=== PATIENT | female | born 1990 | race Caucasian/White ===

== ENCOUNTER 2017-07-06 06:07 | Day surgery (SDC) | payer BC ==
[2017-07-04 14:59] VITALS: BMI 31.7
--- NOTE | 2017-07-04 18:06 | P.HPOB ---
History of Present Illness H&P Date: 07/04/17 Chief Complaint: missed 27 year old presents for suction D&C due to missed at 9 weeks. Review of Systems All systems: negative Constitutional: Denies chills, Denies fever Eyes: denies blurred vision, denies pain Ears, nose, mouth and throat: Denies headache, Denies sore throat Cardiovascular: Denies chest pain, Denies shortness of breath Respiratory: Denies cough Gastrointestinal: Denies abdominal pain, Denies diarrhea, Denies nausea, Denies vomiting Genitourinary: Denies dysuria, Denies hematuria Musculoskeletal: Denies myalgias Integumentary: Denies pruritus, Denies rash Neurological: Denies numbness, Denies weakness Psychiatric: Denies anxiety, Denies depression Endocrine: Denies fatigue, Denies weight change Past Medical History Past Medical History: No Reported History Additional Past Medical History / Comment(s): Hypoglycemia History of Any Multi-Drug Resistant Organisms: None Reported Past Surgical History: No Surgical Hx Reported Additional Past Surgical History / Comment(s): No hx. of sedation Additional Past Anesthesia/Blood Transfusion Reaction / Comment(s): No hx. of having sedation. Past Psychological History: No Psychological Hx Reported Smoking Status: Never smoker Past Alcohol Use History: None Reported Past Drug Use History: None Reported - Past Family History Mother Family Medical History: No Reported History Medications and Allergies Home Medications Medication Instructions Recorded Confirmed Type No Known Home Medications [No 05/16/15 07/04/17 History Known Home Medications] Allergies Allergy/AdvReac Type Severity Reaction Status Date / Time No Known Allergies Allergy Verified 07/04/17 14:43 Exam Osteopathic Statement: *. No significant issues noted on an osteopathic structural exam other than those noted in the History and Physical/Consult. - Vital Signs Vital signs: Intake and Output 07/04/17 07/04/17 07/04/17 06:59 14:59 22:59 Other: Weight 83.915 kg Patient Weight 07/05/17 06:59 Weight 83.915 kg Heart: RRR Lungs: CTAB Abdomen:soft, nontender Extremeties: neg sebastian's Assessment and Plan (1) Missed Status: Acute Code(s): O02.1 - MISSED SNOMED Code(s): 88576221 Plan: 1. suction D&C
[~2017-07-06 06:07] MED LIST: DEXAMETHASONE SOD PHOSPHATE 10 MG/ML 1 ML VIAL IV ONE; HYDROmorphone 0.5 MG/0.5 ML SYRINGE IVP PRN; LACTATED RINGERS 1,000 ML IV SCH; ONDANSETRON 4 MG/2 ML VIAL IVP ONE; ONDANSETRON 4 MG/2 ML VIAL IVP PRN; Pre Op ABX Message 1 EACH MISC MISCELLANE ONE; SCOPOLAMINE 1.5MG/72HR PATCH TRANSDERM ONE
[2017-07-06 06:23] VITALS: RESP 16
[2017-07-06] MEDS ORDERED: LIDOCAINE 1% 20 ML VIAL (10MG/ML) FOR IV START INTRADERMA ONE (06:37)
[2017-07-06] MEDS ORDERED: KETOROLAC 30 MG/ML 1 ML VIAL ONE (07:02)
[2017-07-06] MEDS ORDERED: LIDOCAINE 1% INJ 10MG/ML (20 ML MDV) ONE (07:02)
[2017-07-06] MEDS ORDERED: PROPOFOL 10 MG/ML 20 ML VIAL IV ONE (07:02)
[2017-07-06] MEDS ORDERED: fentaNYL (PF) 50 MCG/ML 2 ML AMP ONE (07:02)
[2017-07-06] MEDS ORDERED: MIDAZOLAM 2 MG/2 ML VIAL ONE (07:02)
[2017-07-06 07:48] VITALS: TEMP 98
[2017-07-06 09:27] VITALS: BP 141/73; PULSE 73
--- NOTE | 2017-07-06 14:29 | P.OP ---
Date of Procedure: 07/06/17 Preoperative Diagnosis: 1. Missed Postoperative Diagnosis: 1. Missed Procedure(s) Performed: Suction D&C Anesthesia: MAC Surgeon: mAanda Brush Estimated Blood Loss (ml): 400 IV fluids (ml): 800 Urine output (ml): 10 Pathology: other (products of conception) Condition: stable Disposition: PACU Description of Procedure: Patient was taken to the operating room where general anesthesia was obtained without difficulty. She was prepped and draped in normal sterile fashion dorsal lithotomy position, legs placed in candycane stirrups. Bladder was drained of all urine. Weighted speculum placed in the vagina and the anterior lip the cervix was grasped with single-tooth tenaculum. The cervix was dilated to #10 Hegar dilator. #10 curved suction curet was introduced into the uterus and hydrodissection. The suction curet was passed several times to remove tissue and blood. Sharp curet was gently used to ensure all tissue had been removed. Suction curet was used to ensure all blood had been removed. Hemostasis was assured. All she was removed from the vagina. Patient tolerated procedure well. Sponge and instrument counts are correct 2. She was taken to recovery room in stable condition.
[2017-07-11 10:27] LABS: Glucose,Whole Blood 95 mg/dL (75-99)
== END 2017-07-06 09:28 | disposition home or self-care (01) ==
LOC: OR 06:07
PROVIDERS: ATTEND Obstetrics & Gynecology
DX: O02.1 Missed abortion (principal); Z3A.09 9 weeks gestation of pregnancy
CPT/HCPCS: 59820; 88305; J2250; J1100; J2405; J2001; J3010; J1885; J2704; 86850; 86900; 86901

== ENCOUNTER → 2017-07-16 | Outpatient (CLI) | payer BC ==
[2017-07-16 16:10] LABS: Basophils % (A) 0 %; Eosinophils # (A) 0.1 k/uL (0-0.7); Eosinophils % (A) 1 %; HCT 39.2 % (34.0-46.0); Lymphocytes # (A) 1.3 k/uL (1.0-4.8); Lymphocytes % (A) 20 %; MCH 31.3 pg (25.0-35.0); MCHC 33.2 g/dL (31.0-37.0); MCV 94.2 fL (80.0-100.0); Mean Platelet Volume 6.4; Monocytes # (A) 0.2 k/uL (0-1.0); Monocytes % (A) 3 %; Neutrophils % (A) 73 %; Platelet Count 398 k/uL (150-450); RBC 4.16 m/uL (3.80-5.40); RDW 12.4 % (11.5-15.5); WBC 6.8 k/uL (3.8-10.6)
== END | disposition home or self-care (01) ==
LOC: LABWHC1 15:32
PROVIDERS: ATTEND Obstetrics & Gynecology
DX: N99.821 Postprocedural hemorrhage of a genitourinary system organ or structure following other procedure (principal); N93.9 Abnormal uterine and vaginal bleeding, unspecified
CPT/HCPCS: 36415; 85025

== ENCOUNTER 2019-01-25 03:03 | Emergency (ER) | payer BC ==
[2019-01-25 03:16] VITALS: TEMP 97.9
--- NOTE | 2019-01-25 04:36 | XR ---
EXAM: XR Chest, 2 Views CLINICAL HISTORY: ITS.REASON XR Reason: Pain TECHNIQUE: Frontal and lateral views of the chest. COMPARISON: No relevant prior studies available. FINDINGS: Lungs: Unremarkable. No consolidation. Pleural space: Unremarkable. No pneumothorax. Heart: No suspicious enlargement. Mediastinum: Unremarkable. Bones/joints: No acute fracture. IMPRESSION: No acute findings.
--- NOTE | 2019-01-25 05:32 | ED ---
Chest Pain HPI - General Chief Complaint: Chest Pain Stated Complaint: Chest Pain Time Seen by Provider: 01/25/19 03:31 Source: patient Mode of arrival: wheelchair Limitations: no limitations - History of Present Illness MD Complaint: chest pain -: hour(s) Pain Location: substernal Pain Radiation: none Severity: moderate Quality: sharp Consistency: constant Improves With: nothing Worsens With: nothing Treatments Prior to Arrival: none - Related Data Previous Rx's Medication Instructions Recorded Ibuprofen [Motrin] 600 mg PO Q6HR PRN #30 tab 07/06/17 Allergies Allergy/AdvReac Type Severity Reaction Status Date / Time No Known Allergies Allergy Verified 07/06/17 07:08 Review of Systems ROS Statement: Those systems with pertinent positive or pertinent negative responses have been documented in the HPI. ROS Other: All systems not noted in ROS Statement are negative. Constitutional: Denies: fever, chills Respiratory: Denies: cough, dyspnea Cardiovascular: Reports: as per HPI, chest pain. Denies: palpitations, syncope Gastrointestinal: Denies: abdominal pain, nausea, vomiting Musculoskeletal: Denies: back pain Skin: Denies: rash Neurological: Denies: headache, weakness, numbness EKG Findings - EKG Results: EKG: interpreted by ERMD, sinus rhythm, normal axis, normal ST/T EKG shows: tachycardia (Rate 102 BPM) - Blocks, [place], Hypertrophy, ST Abn: AV and intraventricular conduction: right bundle branch block (fixed/intermittent, complete/incomplete) (Incomplete) Past Medical History Past Medical History: No Reported History Additional Past Medical History / Comment(s): Heart mumur History of Any Multi-Drug Resistant Organisms: None Reported Past Surgical History: No Surgical Hx Reported Past Psychological History: No Psychological Hx Reported Smoking Status: Never smoker Past Alcohol Use History: Occasional Past Drug Use History: None Reported General Exam Limitations: no limitations General appearance: alert, in no apparent distress Head exam: Present: atraumatic, normocephalic Eye exam: Present: normal appearance. Absent: scleral icterus, conjunctival injection ENT exam: Present: normal oropharynx Neck exam: Present: normal inspection, full ROM Respiratory exam: Present: normal lung sounds bilaterally, chest wall tenderness. Absent: respiratory distress, wheezes, rales, rhonchi, stridor, accessory muscle use Cardiovascular Exam: Present: normal rhythm, tachycardia (Rate 104 my exam), normal heart sounds. Absent: systolic murmur, diastolic murmur, rubs, gallop GI/Abdominal exam: Present: soft. Absent: distended, tenderness, guarding, rebound, rigid, mass Extremities exam: Present: normal inspection, normal capillary refill. Absent: pedal edema, calf tenderness Back exam: Present: normal inspection. Absent: CVA tenderness (R), CVA tenderness (L) Neurological exam: Present: alert Skin exam: Present: warm, dry, intact, normal color. Absent: rash Course Vital Signs 01/25/19 01/25/19 03:11 05:49 Temperature 97.9 F Pulse Rate 115 H 82 Respiratory 18 16 Rate Blood Pressure 129/89 122/77 O2 Sat by Pulse 97 100 Oximetry [facility] Patient is 28-year-old woman with no previous cardiac history who presents with substernal chest pain. The pain is reproduced on the exam with palpation. The patient's workup is benign. Discussed appropriate further care and follow-up as well as return parameters. Disposition Clinical Impression: Chest pain Disposition: HOME SELF-CARE Condition: Good Instructions (If sedation given, give patient instructions): Chest Pain (ED) Is patient prescribed a controlled substance at d/c from ED?: No Referrals: Cameron Acosta Jr, [Primary Care Provider] - 1-2 days
[2019-01-25 05:50] VITALS: BP 122/77; PULSE 82; RESP 16
== END 2019-01-25 05:50 | disposition home or self-care (01) ==
LOC: EC 03:03
DX: R07.89 Other chest pain (principal); R00.0 Tachycardia, unspecified; Z86.79 Personal history of other diseases of the circulatory system
CPT/HCPCS: 71046; 93005; 99285

== ENCOUNTER 2019-03-21 15:46 | Emergency (ER) | payer BC ==
[2019-03-21 15:52] VITALS: BP 155/93; PULSE 88; RESP 18; TEMP 98.8
--- NOTE | 2019-03-21 16:32 | ED ---
Female Urogenital HPI - General Chief complaint: Vaginal Bleeding Stated complaint: Fall sent by OB needs U/S Time Seen by Provider: 03/21/19 16:07 Source: patient Mode of arrival: ambulatory Limitations: no limitations - History of Present Illness Initial comments: Patient is a 29-year-old female presenting to the emergency Department with complaints of lower abdominal cramping and spotting times one week. Patient states she fell in her shower approximately one week ago. She states that later on that evening she started having vaginal bleeding. She thought initially it was her regular period starting however the bleeding only lasted approximately 2 days and then it stopped. She had another day of vaginal bleeding approximately 2 days after that. Patient decided to take a test which was positive. Patient had been taking control for the last year. Patient did call her [facility] who suggested she come to the ER for an ultrasound secondary to the cramping and bleeding. Patient denies any other injuries from falling out the shower. Patient denies any abdominal surgeries. Patient denies fever, chills, nausea, vomiting. Patient has no other complaints at this time. Upon arrival to ER vital signs are stable. Last Menstrual Period: 01/16/19 - Related Data Previous Rx's Medication Instructions Recorded Ibuprofen [Motrin] 600 mg PO Q6HR PRN #30 tab 07/06/17 Allergies Allergy/AdvReac Type Severity Reaction Status Date / Time No Known Allergies Allergy Verified 03/21/19 15:52 Review of Systems ROS Statement: Those systems with pertinent positive or pertinent negative responses have been documented in the HPI. ROS Other: All systems not noted in ROS Statement are negative. Past Medical History Past Medical History: No Reported History Additional Past Medical History / Comment(s): Heart mumur History of Any Multi-Drug Resistant Organisms: None Reported Past Surgical History: No Surgical Hx Reported Past Psychological History: No Psychological Hx Reported Smoking Status: Never smoker Past Alcohol Use History: Occasional Past Drug Use History: None Reported General Exam - General Exam Comments Initial Comments: GENERAL: Well-appearing, well-nourished and in no acute distress. HEAD: Atraumatic, normocephalic. EYES: Pupils equal round and reactive to light, extraocular movements intact, sclera anicteric, conjunctiva are normal. ENT: TMs normal, nares patent, oropharynx clear without exudates. Moist mucous membranes. NECK: Normal range of motion, supple without lymphadenopathy or JVD. LUNGS: Breath sounds clear to auscultation bilaterally and equal. No wheezes rales or rhonchi. HEART: Regular rate and rhythm without murmurs, rubs or gallops. ABDOMEN: Soft, nontender, normoactive bowel sounds. No guarding, no rebound. No masses appreciated. : Deferred, declined EXTREMITIES: Normal range of motion, no pitting or edema. No clubbing or cyanosis. NEUROLOGICAL: Cranial nerves II through XII grossly intact. Normal speech, normal gait. PSYCH: Normal mood, normal affect. SKIN: Warm, Dry, normal turgor, no rashes or lesions noted. Limitations: no limitations Course Vital Signs 03/21/19 15:48 Temperature 98.8 F Pulse Rate 88 Respiratory 18 Rate Blood Pressure 155/93 O2 Sat by Pulse 100 Oximetry Medical Decision Making - Medical Decision Making Patient is a 29-year-old female presenting with lower abdomen cramping and vaginal spotting x 1 week. Patient did take a test a few days ago and it was positive. Patient has been on control pills so this was unexpected. Patient took a fall approximately one week ago out of her shower has been having cramping and bleeding since. Patient denies any other injuries from the fall. Patient's exam is unremarkable. CBC, CMP, UA are all within normal limits. HCG Jeremias is approximately 96,000. Ultrasound reveals a single IUP with gestation around 7 weeks. Small subchorionic hemorrhage. Heart rate 136. Blood type is A+. Findings were discussed with the patient and she will follow-up with [facility]. Patient stable for discharge at this time. Return parameters were discussed with the patient and she verbalized understanding. Case discussed with Dr. Jacobs. - Lab Data Result diagrams: 03/21/19 17:00 03/21/19 17:00 Lab Results 03/21/19 03/21/19 03/21/19 Range/Units 17:00 17:00 17:00 WBC 7.0 (3.8-10.6) k/uL RBC 4.35 (3.80-5.40) m/uL Hgb 13.8 (11.4-16.0) gm/dL Hct 40.6 (34.0-46.0) % MCV 93.3 (80.0-100.0) fL MCH 31.8 (25.0-35.0) pg MCHC 34.1 (31.0-37.0) g/dL RDW 12.7 (11.5-15.5) % Plt Count 298 (150-450) k/uL Neutrophils % 73 % Lymphocytes % 18 % Monocytes % 5 % Eosinophils % 2 % Basophils % 0 % Neutrophils # 5.2 (1.3-7.7) k/uL Lymphocytes # 1.3 (1.0-4.8) k/uL Monocytes # 0.3 (0-1.0) k/uL Eosinophils # 0.1 (0-0.7) k/uL Basophils # 0.0 (0-0.2) k/uL Sodium 138 (137-145) mmol/L Potassium 4.0 (3.5-5.1) mmol/L Chloride 105 (98-107) mmol/L Carbon Dioxide 21 L (22-30) mmol/L Anion Gap 12 mmol/L BUN 8 (7-17) mg/dL Creatinine 0.44 L (0.52-1.04) mg/dL Est GFR (CKD-EPI)AfAm >90 (>60 ml/min/1.73 sqM) Est GFR (CKD-EPI)NonAf >90 (>60 ml/min/1.73 sqM) Glucose 121 H (74-99) mg/dL Calcium 10.1 (8.4-10.2) mg/dL Total Bilirubin 0.3 (0.2-1.3) mg/dL AST 25 (14-36) U/L ALT 14 (9-52) U/L Alkaline Phosphatase 55 (38-126) U/L Total Protein 8.0 (6.3-8.2) g/dL Albumin 4.5 (3.5-5.0) g/dL HCG, Quant 85669.4 mIU/mL Urine Color Urine Appearance (Clear) Urine pH (5.0-8.0) Ur Specific Winter (1.001-1.035) Urine Protein (Negative) Urine Glucose (UA) (Negative) Urine Ketones (Negative) Urine Blood (Negative) Urine Nitrite (Negative) Urine Bilirubin (Negative) Urine Urobilinogen (<2.0) mg/dL Ur Leukocyte Esterase (Negative) Blood Type A Positive Blood Type Recheck A Pos Bld Type Recheck Status No 03/21/19 Range/Units 17:00 WBC (3.8-10.6) k/uL RBC (3.80-5.40) m/uL Hgb (11.4-16.0) gm/dL Hct (34.0-46.0) % MCV (80.0-100.0) fL MCH (25.0-35.0) pg MCHC (31.0-37.0) g/dL RDW (11.5-15.5) % Plt Count (150-450) k/uL Neutrophils % % Lymphocytes % % Monocytes % % Eosinophils % % Basophils % % Neutrophils # (1.3-7.7) k/uL Lymphocytes # (1.0-4.8) k/uL Monocytes # (0-1.0) k/uL Eosinophils # (0-0.7) k/uL Basophils # (0-0.2) k/uL Sodium (137-145) mmol/L Potassium (3.5-5.1) mmol/L Chloride (98-107) mmol/L Carbon Dioxide (22-30) mmol/L Anion Gap mmol/L BUN (7-17) mg/dL Creatinine (0.52-1.04) mg/dL Est GFR (CKD-EPI)AfAm (>60 ml/min/1.73 sqM) Est GFR (CKD-EPI)NonAf (>60 ml/min/1.73 sqM) Glucose (74-99) mg/dL Calcium (8.4-10.2) mg/dL Total Bilirubin (0.2-1.3) mg/dL AST (14-36) U/L ALT (9-52) U/L Alkaline Phosphatase (38-126) U/L Total Protein (6.3-8.2) g/dL Albumin (3.5-5.0) g/dL HCG, Quant mIU/mL Urine Color Light Yellow Urine Appearance Clear (Clear) Urine pH 6.0 (5.0-8.0) Ur Specific Winter 1.004 (1.001-1.035) Urine Protein Negative (Negative) Urine Glucose (UA) Negative (Negative) Urine Ketones Negative (Negative) Urine Blood Negative (Negative) Urine Nitrite Negative (Negative) Urine Bilirubin Negative (Negative) Urine Urobilinogen <2.0 (<2.0) mg/dL Ur Leukocyte Esterase Negative (Negative) Blood Type Blood Type Recheck Bld Type Recheck Status Disposition Clinical Impression: Vaginal bleeding, and not yet delivered in first trimester Disposition: HOME SELF-CARE Condition: Stable Instructions (If sedation given, give patient instructions): Non-Threatening First Trimester Vaginal Bleed (ED) Additional Instructions: Please return to the Emergency Department if symptoms worsen or any other concerns. Follow-up with [facility] as discussed. Is patient prescribed a controlled substance at d/c from ED?: No Referrals: Cameron Acosta Jr, [Primary Care Provider] - 1-2 days
[2019-03-21 17:30] LABS: Appearance,Urine Clear (Clear); Basophils % (A) 0 %; Bilirubin,Urine Negative (Negative); Blood,Urine Negative (Negative); Color,Urine Light Yellow; Eosinophils # (A) 0.1 k/uL (0-0.7); Eosinophils % (A) 2 %; Glucose,Urine (UA) Negative (Negative); HCT 40.6 % (34.0-46.0); HGB 13.8 gm/dL (11.4-16.0); Ketones,Urine Negative (Negative); Leukocyte Esterase,Urine Negative (Negative); Lymphocytes # (A) 1.3 k/uL (1.0-4.8); Lymphocytes % (A) 18 %; MCH 31.8 pg (25.0-35.0); MCHC 34.1 g/dL (31.0-37.0); MCV 93.3 fL (80.0-100.0); Mean Platelet Volume 6.8; Monocytes # (A) 0.3 k/uL (0-1.0); Monocytes % (A) 5 %; Neutrophils # (A) 5.2 k/uL (1.3-7.7); Neutrophils % (A) 73 %; Nitrite,Urine Negative (Negative); Platelet Count 298 k/uL (150-450); Protein,Urine Negative (Negative); RBC 4.35 m/uL (3.80-5.40); RDW 12.7 % (11.5-15.5); Specific Gravity,Urine 1.004 (1.001-1.035); Urobilinogen,Urine <2.0 mg/dL (<2.0)
[2019-03-21 18:00] LABS: ALT 14 U/L (9-52); AST 25 U/L (14-36); African American GFR (CKD) >90 (>60 ml/min/1.73 sqM); Albumin 4.5 g/dL (3.5-5.0); Alkaline Phosphatase 55 U/L (38-126); Anion Gap 12 mmol/L; Blood Urea Nitrogen 8 mg/dL (7-17); Calcium 10.1 mg/dL (8.4-10.2); Carbon Dioxide 21 mmol/L (22-30); Chloride 105 mmol/L (98-107); Glucose 121 mg/dL (74-99); Non-African American GFR(CKD) >90 (>60 ml/min/1.73 sqM); Sodium 138 mmol/L (137-145); Total Bilirubin 0.3 mg/dL (0.2-1.3)
[2019-03-21 19:06] LABS: HCG,Quantitative Serum 95815.4 mIU/mL
--- NOTE | 2019-03-21 19:17 | US ---
EXAMINATION TYPE: Transabdominal DATE OF EXAM: 03/21/2019 6:19 PM COMPARISON: NONE CLINICAL HISTORY: cramping, spotting. LMP in January. Pt c/o cramping since last week. No vaginal blee ding per patient; EXAM PERFORMED: Transvaginal (TV) and Transabdominal (TA) EXAM MEASUREMENTS: GESTATIONAL AGE / DATING Physician Established: Not yet established Dates by LMP: LMP unknown Dates by First Scan: this is first scan Dates by Current Scan for: (7 weeks/0 days) EDC: 11/07/2019 MATERNAL ANATOMY Uterus: 8.2 x 6.6 x 5.2cm Right Ovary: 3.0 x 1.6 x 2.0 cm Left Ovary: 2.5 x 2.1 x 2.0 cm Post CDS / Adnexa: wnl Presence of free fluid: no Presence of corpus luteal cyst: in left ovary = 1.5 x 2.0 x 1.4cm Presence of subchorionic bleed: yes, noted inferiorly as hypoechoic area = 0.4 x 2.2 x 0.3 cm GESTATION / SURVEY CRL: 0.9 cm (7 weeks/0 days) Yolk Sac (normal less than 6mm): 2.8 mm Heart Rate: 136 bpm Rhythm: Normal IUP: Viable IUP Date of LMP: January,P0 Beta HcG (if available): Not available at this time Single, live IUP,7 weeks/0 days, EDC: 11/07/2019, HR 136bpm. IMPRESSION: 1. Single live intrauterine gestation with calculated ultrasound age of 7 weeks 0 days and estimated date of delivery 11/07/2019. 2. Small subchorionic hemorrhage.
== END 2019-03-21 19:40 | disposition home or self-care (01) ==
LOC: EC 15:46
DX: O20.9 Hemorrhage in early pregnancy, unspecified (principal); Z3A.01 Less than 8 weeks gestation of pregnancy; W18.2XXA Fall in (into) shower or empty bathtub, initial encounter; Y93.E1 Activity, personal bathing and showering
CPT/HCPCS: 36415; 76801; 76817; 80053; 81003; 84702; 85025; 86900; 86901; 99284

== ENCOUNTER 2019-06-22 08:08 | Emergency (ER) | payer BC ==
[2019-06-22 08:12] VITALS: BP 133/87; PULSE 96; RESP 16; TEMP 98.1
[2019-06-22] MEDS ORDERED: HYDROcodone/APAP 5-325MG 1 EACH TAB PO STA (08:26)
--- NOTE | 2019-06-22 08:28 | ED ---
Fall HPI - General Chief Complaint: Fall Stated Complaint: Right Shoulder Injury Time Seen by Provider: 06/22/19 08:13 Source: patient, RN notes reviewed, old records reviewed Mode of arrival: ambulatory - History of Present Illness Initial Comments: Patient is a 29-year-old female. She presents today for evaluation for concern for right shoulder and clavicle pain. Patient reports that she was walking up her steps into her home when she tripped. She reports she landed on her right shoulder. Patient states that she has pain with any range of motion. She states that she has no elbow wrist or hand pain. She denies any head or neck injury. Denies any loss of consciousness. Denies any previous injuries to the shoulder. - Related Data Previous Rx's Medication Instructions Recorded Ibuprofen [Motrin] 600 mg PO Q6HR PRN #30 tab 07/06/17 Ibuprofen 600 mg PO TID #30 tablet 06/22/19 Allergies Allergy/AdvReac Type Severity Reaction Status Date / Time No Known Allergies Allergy Verified 06/22/19 08:12 Review of Systems ROS Statement: Those systems with pertinent positive or pertinent negative responses have been documented in the HPI. ROS Other: All systems not noted in ROS Statement are negative. Past Medical History Past Medical History: No Reported History Additional Past Medical History / Comment(s): Heart mumur History of Any Multi-Drug Resistant Organisms: None Reported Past Surgical History: No Surgical Hx Reported Past Psychological History: No Psychological Hx Reported Smoking Status: Never smoker Past Alcohol Use History: Occasional Past Drug Use History: None Reported General Exam - General Exam Comments Initial Comments: 29-year-old female. Alert and oriented 3. No significant distress. Limitations: no limitations General appearance: alert, in no apparent distress Head exam: Present: atraumatic, normocephalic, normal inspection Eye exam: Present: normal appearance, PERRL, EOMI. Absent: scleral icterus, conjunctival injection, periorbital swelling ENT exam: Present: normal exam, mucous membranes moist Neck exam: Present: normal inspection. Absent: tenderness, meningismus, lymphadenopathy Respiratory exam: Present: normal lung sounds bilaterally. Absent: respiratory distress, wheezes, rales, rhonchi, stridor Cardiovascular Exam: Present: regular rate, normal rhythm, normal heart sounds. Absent: systolic murmur, diastolic murmur, rubs, gallop, clicks GI/Abdominal exam: Present: soft, normal bowel sounds. Absent: distended, tenderness, guarding, rebound, rigid Right Shoulder Exam: Present: tenderness, swelling (tenderness over deltoid, unable to complete ROM), tenderness over AC joint. Absent: normal inspection, full ROM, laceration, ecchymosis, deformity, crepitus, dislocation Upper Arm exam: Present: normal inspection, full ROM Elbow exam: Present: normal inspection, full ROM Forearm Wrist exam: Present: normal inspection, full ROM Vascular: Present: normal capillary refill Back exam: Present: normal inspection Neurological exam: Present: alert, oriented X3, CN II-XII intact Psychiatric exam: Present: normal affect, normal mood Course Vital Signs 06/22/19 08:10 Temperature 98.1 F Pulse Rate 96 Respiratory 16 Rate Blood Pressure 133/87 O2 Sat by Pulse 99 Oximetry Medical Decision Making - Medical Decision Making 29-year-old female presents today for evaluation for trip and fall. Patient she slipped going up her stairs and landed on her right shoulder. Just tenderness over the deltoid and AC joint. X-ray of the clavicle and shoulder were completed. No sign of fractures. Evidence of a grade [address] in a sling. Discussed following up with orthopedic. Patient understands treatment plan will comply. Return parameters were discussed. - Radiology Data Radiology results: report reviewed Grade 3 AC separation of the right AC joint. Shoulder x-ray shows no fractures. There is a grade 3 right aAC separation Disposition Clinical Impression: AC separation, type 3 Disposition: HOME SELF-CARE Instructions (If sedation given, give patient instructions): Acromioclavicular Separation (ED) Additional Instructions: Patient advised to rest and apply ice to the shoulder. Wear a sling. Recommended following up with loss mitigation specialist. Return to the emergency department if any alarming signs or symptoms occur. Prescriptions: Ibuprofen 600 mg PO TID #30 tablet Is patient prescribed a controlled substance at d/c from ED?: No Referrals: Cameron Acosta Jr, DO [Primary Care Provider] - 1-2 days Oliver Baumann MD [STAFF PHYSICIAN] - 1-2 days Time of Disposition: 09:00
--- NOTE | 2019-06-22 08:53 | XR ---
EXAMINATION TYPE: XR shoulder complete RT , 3 VIEWS DATE OF EXAM ORDERED: 06/22/2019 HISTORY: fall, pain rom. COMPARISON: None. FINDINGS: No fracture or dislocation is seen. The coracoclavicular distance is enlarged at 1.6 cm. IMPRESSION: GRADE 3 RIGHT AC SEPARATION.
--- NOTE | 2019-06-22 08:54 | XR ---
EXAMINATION TYPE: XR clavicle RT , 2 VIEWS DATE OF EXAM ORDERED: 06/22/2019 HISTORY: fall, pain rom. COMPARISON: None. FINDINGS: No fracture or dislocation is seen. Once again, a grade 3 right AC joint separation is see n with coracoclavicular distance measuring 18 mm. IMPRESSION: GRADE 3 AC SEPARATION OF THE RIGHT AC JOINT.
[2019-06-22] MEDS ORDERED: ACET/COD 300 MG/30 MG STARTER PACK 6 TAB BTL PO STA (09:09)
== END 2019-06-22 09:32 | disposition home or self-care (01) ==
LOC: EC 08:08
DX: S43.101A Unspecified dislocation of right acromioclavicular joint, initial encounter (principal); W10.9XXA Fall (on) (from) unspecified stairs and steps, initial encounter; Y93.01 Activity, walking, marching and hiking; Y92.009 Unspecified place in unspecified non-institutional (private) residence as the place of occurrence of the external cause
CPT/HCPCS: 99284

== ENCOUNTER 2022-12-28 08:13 | Inpatient (IN) | payer BC ==
[2022-12-28] MEDS ORDERED: miSOPROStoL 200 MCG TAB PO PRN (08:50)
[2022-12-28] MEDS ORDERED: LIDOCAINE 0.5% (PF) 5 MG/ML (50 ML SDV) SQ PRN (08:50)
[2022-12-28] MEDS ORDERED: CARBOPROST TROMETHAMINE 250 MCG/ML 1 ML AMP IM PRN (08:50)
[2022-12-28] MEDS ORDERED: OXYTOCIN 10 UNIT/ML 1 ML VIAL IM PRN (08:50)
[2022-12-28] MEDS ORDERED: METHYLERGONOVINE 0.2 MG/ML 1 ML AMP IM PRN (08:50)
[2022-12-28] MEDS ORDERED: TRANEXAMIC 1,000 MG/100ML-NACL 1,000 MG in EMPTY BAG 1 BAG IV PRN (08:50)
[2022-12-28] MEDS ORDERED: CITRIC ACID-SODIUM CITRATE 15 ML CUP PO ONE (08:52)
[2022-12-28] MEDS ORDERED: MIDAZOLAM 2 MG/2 ML VIAL ONE (08:54)
[2022-12-28] MEDS ORDERED: OXYTOCIN 10 UNIT/ML 1 ML VIAL ONE (08:54)
[2022-12-28] MEDS ORDERED: OXYTOCIN 30 UNITS/500 ML NS BAG IV ONE (08:54)
[2022-12-28] MEDS ORDERED: KETOROLAC 15 MG/ML 1 ML VIAL ONE (08:54)
[2022-12-28] MEDS ORDERED: SUCCINYLCHOLINE CHLORIDE 200 MG/10 ML VIAL IV ONE (08:54)
[2022-12-28] MEDS ORDERED: PROPOFOL 10 MG/ML 20 ML VIAL IV ONE (08:54)
[2022-12-28] MEDS ORDERED: fentaNYL (PF) 50 MCG/ML 2 ML AMP ONE (08:54)
[2022-12-28] MEDS ORDERED: ONDANSETRON 4 MG/2 ML VIAL ONE (08:54)
[2022-12-28] MEDS ORDERED: METOCLOPRAMIDE 5 MG/ML 2 ML VIAL IVP PRN (09:26)
[2022-12-28] MEDS ORDERED: diphenhydrAMINE 50 MG CAP PO PRN (09:26)
[2022-12-28] MEDS ORDERED: diphenhydrAMINE 50 MG/ML 1 ML VIAL IVP PRN ×2 (09:26)
[2022-12-28] MEDS ORDERED: ZOLPIDEM 5 MG TAB PO PRN (09:26)
[2022-12-28] MEDS ORDERED: NALOXONE 0.4 MG/ML 1 ML VIAL IV PRN (09:26)
[2022-12-28] MEDS ORDERED: ONDANSETRON 4 MG/2 ML VIAL IVP PRN (09:26)
[2022-12-28] MEDS ORDERED: diphenhydrAMINE 25 MG CAP PO PRN (09:26)
[2022-12-28] MEDS ORDERED: HYDROmorphone PCA 10 MG/50 ML BAG IV PRN (09:26)
[2022-12-28] MEDS ORDERED: SIMETHICONE 80 MG CHEWABLE PO PRN (09:26)
[2022-12-28] MEDS ORDERED: OXYTOCIN 30 UNITS/500 ML NS 30 UNIT in SALINE 1 500ML.BAG IV SCH (09:30)
[2022-12-28 10:11] LABS: Basophils # (A) 0.1 k/uL (0-0.2); Basophils % (A) 1 %; Eosinophils # (A) 0.2 k/uL (0-0.7); Eosinophils % (A) 1 %; HCT 38.3 % (34.0-46.0); HGB 12.9 gm/dL (11.4-16.0); Lymphocytes # (A) 1.4 k/uL (1.0-4.8); Lymphocytes % (A) 13 %; MCH 33.3 pg (25.0-35.0); MCHC 33.7 g/dL (31.0-37.0); MCV 98.8 fL (80.0-100.0); Mean Platelet Volume 8.5; Monocytes # (A) 0.4 k/uL (0-1.0); Monocytes % (A) 4 %; Neutrophils # (A) 8.4 k/uL (1.3-7.7); Neutrophils % (A) 79 %; Platelet Count 200 k/uL (150-450); RBC 3.87 m/uL (3.80-5.40); RDW 12.8 % (11.5-15.5); WBC 10.6 k/uL (3.8-10.6)
--- NOTE | 2022-12-28 11:11 | P.HPOB ---
History of Present Illness H&P Date: 12/28/22 Chief Complaint: PROM labor 32 year old presents at 27 weeks 2 days grossly ruptured, 8cm dilated, baby in priya breech position with presenting part at +1 station. RN says we initially did have heart tones but then the baby is so low in the pelvis, we did not get heart tones the time stamp assembler in triage. I presented to triage, checked the cervix and advised that if we want to do everything for this baby, we need to do an emergency . We weighed risks and benefits with mom and family between breech vaginal delivery and . This was already complicated by situs inversus, diaphragmatic hernia, cleft lip and minimal lung tissue. The patient was agreeable to our plan of expediting delivery via emergency . Review of Systems All systems: negative Constitutional: Denies chills, Denies fever Eyes: denies blurred vision, denies pain Ears, nose, mouth and throat: Denies headache, Denies sore throat Cardiovascular: Denies chest pain, Denies shortness of breath Respiratory: Denies cough Gastrointestinal: Denies abdominal pain, Denies diarrhea, Denies nausea, Denies vomiting Genitourinary: Denies dysuria, Denies hematuria Musculoskeletal: Denies myalgias Integumentary: Denies pruritus, Denies rash Neurological: Denies numbness, Denies weakness Psychiatric: Denies anxiety, Denies depression Endocrine: Denies fatigue, Denies weight change Past Medical History Past Medical History: No Reported History Additional Past Medical History / Comment(s): Heart mumur History of Any Multi-Drug Resistant Organisms: None Reported Past Surgical History: No Surgical Hx Reported Additional Past Surgical History / Comment(s): D&C Past Anesthesia/Blood Transfusion Reactions: No Reported Reaction Past Psychological History: No Psychological Hx Reported Smoking Status: Current some day smoker Past Alcohol Use History: Occasional Past Drug Use History: None Reported - Past Family History Mother Family Medical History: No Reported History Medications and Allergies Home Medications Medication Instructions Recorded Confirmed Type No Known Home Medications 12/28/22 12/28/22 History Allergies Allergy/AdvReac Type Severity Reaction Status Date / Time No Known Allergies Allergy Verified 12/28/22 09:24 Exam Osteopathic Statement: *. No significant issues noted on an osteopathic structural exam other than those noted in the History and Physical/Consult. Vital Signs Temp Pulse Resp BP Pulse Ox 12/28/22 10:54 75 16 135/83 100 12/28/22 10:36 98.1 F 73 16 138/82 100 12/28/22 10:21 86 16 138/82 100 12/28/22 10:06 78 16 140/79 100 12/28/22 09:50 98.0 F 101 H 16 149/88 100 12/28/22 09:28 97.7 F 94 16 139/82 99 12/28/22 08:50 97.7 F 94 16 139/82 99 Intake and Output 12/27/22 12/28/22 12/28/22 22:59 06:59 14:59 Output Total 707 Balance -707 Output: Output, Quantitative 707 Blood Loss Other: Weight 94.347 kg HEart: RRR Lungs: CTAB Abdomen: soft,nontender Extremeteis: neg sebastian's Results Result Diagrams: 12/28/22 08:46 Abnormal Lab Results - Last 24 Hours (Table) 12/28/22 Range/Units 08:46 Neutrophils # 8.4 H (1.3-7.7) k/uL Assessment and Plan (1) 27 weeks gestation of Current Visit: Yes Status: Acute Code(s): Z3A.27 - 27 WEEKS GESTATION OF SNOMED Code(s): 52158505 (2) Breech presentat-unspec Current Visit: Yes Status: Acute Code(s): O32.1XX0 - MATERNAL CARE FOR BREECH PRESENTATION, UNSP SNOMED Code(s): 7402066 (3) Encounter for suspected premature rupture of amniotic membranes, with rupture of membranes not found Current Visit: Yes Status: Acute Code(s): Z03.71 - ENCNTR FOR SUSP PROB W AMNIO CAVITY AND MEMBRANE RULED OUT SNOMED Code(s): 566923427 (4) labor Current Visit: Yes Status: Acute Code(s): O60.00 - LABOR WITHOUT DELIVERY, UNSPECIFIED TRIMESTER SNOMED Code(s): 6368824 (5) Congenital heart anomaly Current Visit: Yes Status: Acute Code(s): Q24.9 - CONGENITAL MALFORMATION OF HEART, UNSPECIFIED SNOMED Code(s): 79633883 Plan: 1. stat 2. independent crop consultant at bedside
--- NOTE | 2022-12-28 11:15 | P.OP ---
Date of Procedure: 12/28/22 Preoperative Diagnosis: 1. 27 weeks 2 days 2. priya breech 3. labor 4. rupture of amniotic membranes 5. congenital heart defect Postoperative Diagnosis: 1. 27 weeks 2 days 2. priya breech 3. labor 4. rupture of amniotic membranes 5. congenital heart defect 6. demise Procedure(s) Performed: primary low transverse Anesthesia: WENDY Surgeon: Amanda Brush Product Transfer Pumper #1: Jeanine Almeida Estimated Blood Loss (ml): 300 IV fluids (ml): 800 Urine output (ml): 200 Pathology: other (placenta) Condition: stable Disposition: floor Indications for Procedure: please see dictated H&P for full details Operative Findings: nonviable male infant in priya breech presentation. placenta appeared to have abrupted. Description of Procedure: Patient was taken to the operating room where general anesthesia was found be adequate. She was prepped and draped in normal sterile fashion in dorsal supine position with a leftward tilt. Pfannenstiel skin incision was made the scalpel and carried through to the underlying layer of fascia with the scalpel. Fascia was incised in midline and carried bilaterally with the Rodriguez scissors. The superior aspect of the fascial incision was grasped with Wayne clamps elevated and the underlying rectus muscles dissected off with the Rodriguez's. Attention was then turned to inferior aspect of same incision which in a similar fashion was grasped tented up and the underlying rectus muscles dissected off with the Rodriguez's. The rectus muscles were the midline and the peritoneum was identified tented up and entered sharply with the scalpel. The incision was extended superiorly and inferiorly with good visualization of the bladder. The bladder blade was inserted and the vesicouterine peritoneum was incised the Metzenbaums then carried bilaterally and bladder flap created digitally. A low transverse incision was then made on the uterus with the scalpel. This was carried bilaterally and digital manner. Delivered in priya breech fashion, cord clamped and cut, infant handed off to waiting nurses. Apgars 0,0, weight 2 lbs. 2 oz. Placenta delivered manually, intact with three-vessel cord. The uterus is exteriorized and cleared of all clots and debris. The uterine incision was closed with 0 Vicryl in a running locked fashion. Second layer of the same sutures used in imbricating fashion to obtain excellent hemostasis. Bladder flap was then reapproximated using 2-0 Vicryl in a running fashion. Both ovaries and tubes appeared normal. The uterus was placed back into the abdomen. The peritoneum was reapproximated using 2-0 Vicryl in a running fashion. The muscles were reapproximated using 2-0 Vicryl in interrupted fashion. The fascia was reapproximated using 0 Vicryl in a running fashion. The subcutaneous tissues closed with 3-0 Vicryl running fashion. The skin was closed huang. Patient tolerated the procedure well, sponge and instrument counts were correct times 2 and she was taken to the recovery room in stable condition.
[2022-12-28] MEDS: ACETAMINOPHEN TAB 500 MG TAB PO SCH ×2 (14:43→17:39)
[2022-12-28] MEDS: KETOROLAC 15 MG/ML 1 ML VIAL IVP SCH ×2 (15:06→21:17)
[2022-12-28] MEDS ORDERED: BENZOCAINE/MENTHOL LOZENG 1 EACH LOZENGE MUCOUS MEM PRN (15:48)
[2022-12-28] MEDS: LACTATED RINGERS 1,000 ML IV SCH ×3 (16:04→22:10)
[2022-12-28] MEDS: IBUPROFEN 600 MG TAB PO SCH ×2 (16:39→23:26)
[2022-12-28] MEDS: SENNOSIDES-DOCUSATE SODIUM 1 EACH TAB PO SCH (21:20)
[2022-12-29] MEDS: ACETAMINOPHEN TAB 500 MG TAB PO SCH ×4 (00:08→21:00)
[2022-12-29] MEDS: KETOROLAC 15 MG/ML 1 ML VIAL IVP SCH ×2 (02:57→09:19)
[2022-12-29] MEDS: IBUPROFEN 600 MG TAB PO SCH ×4 (04:41→23:33)
[2022-12-29 07:20] LABS: Basophils % (A) 0 %; Eosinophils # (A) 0.1 k/uL (0-0.7); Eosinophils % (A) 2 %; HCT 27.1 % (34.0-46.0); Lymphocytes # (A) 0.9 k/uL (1.0-4.8); Lymphocytes % (A) 11 %; MCH 32.7 pg (25.0-35.0); MCHC 33.9 g/dL (31.0-37.0); MCV 96.3 fL (80.0-100.0); Mean Platelet Volume 7.6; Monocytes # (A) 0.3 k/uL (0-1.0); Monocytes % (A) 4 %; Neutrophils # (A) 7.1 k/uL (1.3-7.7); Neutrophils % (A) 83 %; Platelet Count 154 k/uL (150-450); RBC 2.82 m/uL (3.80-5.40); RDW 12.9 % (11.5-15.5); WBC 8.5 k/uL (3.8-10.6)
[2022-12-29 07:23] LABS: HGB 9.2 gm/dL (11.4-16.0)
--- NOTE | 2022-12-29 08:29 | P.PNOBGPC ---
Subjective - Subjective Principal diagnosis: Status post primary low transverse with demise postop day 1 Interval history: Patient seen and examined. Pain is controlled with Dilaudid RN EMERGENCY ROOM and Toradol. Patient reports: Reports appetite normal, Reports voiding normally, Reports pain well controlled, Reports ambulating normally : Objective - Vital Signs Latest vital signs: Vital Signs Temp Pulse Resp BP Pulse Ox 12/29/22 04:00 98.4 F 68 18 109/67 12/29/22 00:00 99.0 F 77 18 105/65 99 12/28/22 20:00 98.5 F 65 18 113/70 99 12/28/22 16:00 98.5 F 85 16 121/71 97 12/28/22 12:00 98.2 F 75 16 132/70 100 12/28/22 11:39 77 16 136/78 12/28/22 11:03 75 16 133/81 100 12/28/22 10:54 75 16 135/83 100 12/28/22 10:36 98.1 F 73 16 138/82 100 12/28/22 10:21 86 16 138/82 100 12/28/22 10:06 78 16 140/79 100 12/28/22 09:50 98.0 F 101 H 16 149/88 100 12/28/22 09:28 97.7 F 94 16 139/82 99 12/28/22 08:50 97.7 F 94 16 139/82 99 Intake and Output 12/28/22 12/29/22 12/29/22 22:59 06:59 14:59 Intake Total 100 Output Total 500 600 Balance -400 -600 Intake: Oral 100 Output: Urine 500 600 Uretheral (Moody) 200 Other: # Voids 1 1 - Exam Lungs: bilateral: normal Chest: Normal S1, Normal S2 Extremities: Present: normal Abdomen: Present: normal appearance, soft. Absent: distention, tenderness Incision: Present: normal, dry, intact Uterus: Present: normal, firm - Labs Labs: Abnormal Lab Results - Last 24 Hours (Table) 12/28/22 12/29/22 Range/Units 08:46 06:30 RBC 2.82 L (3.80-5.40) m/uL Hgb 9.2 L D (11.4-16.0) gm/dL Hct 27.1 L (34.0-46.0) % Neutrophils # 8.4 H (1.3-7.7) k/uL Lymphocytes # 0.9 L (1.0-4.8) k/uL Assessment and Plan (1) 27 weeks gestation of Current Visit: Yes Status: Resolved Code(s): Z3A.27 - 27 WEEKS GESTATION OF SNOMED Code(s): 16760204 (2) Breech presentat-unspec Current Visit: Yes Status: Resolved Code(s): O32.1XX0 - MATERNAL CARE FOR BREECH PRESENTATION, UNSP SNOMED Code(s): 5066607 (3) Encounter for suspected premature rupture of amniotic membranes, with rupture of membranes not found Current Visit: Yes Status: Resolved Code(s): Z03.71 - ENCNTR FOR SUSP PROB W AMNIO CAVITY AND MEMBRANE RULED OUT SNOMED Code(s): 645292762 (4) labor Current Visit: Yes Status: Resolved Code(s): O60.00 - LABOR WITHOUT DELIVERY, UNSPECIFIED TRIMESTER SNOMED Code(s): 8357993 (5) Congenital heart anomaly Current Visit: Yes Status: Resolved Code(s): Q24.9 - CONGENITAL MALFORMATION OF HEART, UNSPECIFIED SNOMED Code(s): 63673295 (6) Status post primary low transverse section Current Visit: Yes Status: Acute Code(s): Z98.891 - HISTORY OF UTERINE SCAR FROM PREVIOUS SURGERY SNOMED Code(s): 791185697 Plan: 1. D/C RN EMERGENCY ROOM 2. po pain meds 3. increase ambulation
[2022-12-29] MEDS: SENNOSIDES-DOCUSATE SODIUM 1 EACH TAB PO SCH ×2 (09:19→20:13)
[2022-12-29] MEDS: LACTATED RINGERS 1,000 ML IV SCH (10:07)
[2022-12-30] MEDS: ACETAMINOPHEN TAB 500 MG TAB PO SCH ×2 (02:48→08:00)
[2022-12-30] MEDS: IBUPROFEN 600 MG TAB PO SCH ×2 (05:50→08:00)
[2022-12-30] MEDS: SENNOSIDES-DOCUSATE SODIUM 1 EACH TAB PO SCH (08:00)
--- NOTE | 2022-12-30 08:06 | P.DS ---
Providers Date of admission: 12/28/22 08:39 Expected date of discharge: 12/30/22 Attending physician: Amanda Brush Primary care physician: Stated None Hospital Course: This is a 32-year-old female 3 para 0 at 27-3/7 weeks who presented with vaginal bleeding, spontaneous rupture membranes and active labor. Please see history and physical for details of patient's admission. Patient underwent a emergency primary section on 12/28/2022 and delivered a nonviable male infant in the breech presentation with scores of 0 at 1 minute and 0 at 5 minutes and weight of 2 lbs. 2 oz. Please see operative report for details of procedure. Post operatively the patient has done well. She is passing flatus and bowel movement. Her bleeding is moderate. Her pain is fairly well controlled with ibuprofen and Tylenol. She feels she is doing okay emotionally. They do plan on having a burial for the baby. Vital signs are stable. Abdomen is soft with fundus firm and nontender. Incision is clean dry and intact with huang in place. Elizabeth-pad shows scant serosanguineous discharge. Extremities show negative Homans. Impression is status post primary low transverse section with partial T incision with delivery of a nonviable male infant, postoperative day #2. Plan is to discharge home today. Routine postoperative instructions are given. Prescriptions have been sent and per Dr. Brush. She is advised to follow up in the office of Dr. Brush in approximately 1 week. She is advised to call the office if she has any further questions or concerns prior to her appointment time. Procedures: Emergent low transverse section with partial T incision on 12/28/2022 Patient Condition at Discharge: Stable Plan - Discharge Summary New Discharge Prescriptions: New Ibuprofen [Motrin] 600 mg PO Q6H #30 tab oxyCODONE HCL [OxyIR] 5 mg PO Q4HR PRN #18 tab PRN Reason: Pain Scale 4 - 6 Discharge Medication List Ibuprofen [Motrin] 600 mg PO Q6H #30 tab 12/29/22 [Rx] oxyCODONE HCL [OxyIR] 5 mg PO Q4HR PRN #18 tab 12/29/22 [Rx] Follow up Appointment(s)/Referral(s): Amanda Brush DO [Doctor of Osteopathic Medicine] - 02/05/23 10:45 am (Post- Op appointment on January 10 @ 9:45AM) Activity/Diet/Wound Care/Special Instructions: Instructions 1. Do not begin any exercise program for 3 weeks. 2. Do not resume sexual relations for 3 weeks or longer if uncomfortable. 3. You may take tub baths or showers at any time. 4. You may use tampons if desired after 3 weeks. 5. Keep the area of episiotomy (stitches) clean and dry. 6. If you are not nursing, wear a good fitting, supportive bra during the day and limit fluid intake for at least 1 week to prevent breast engorgement. 7. Call the office, [phone], within the next week to make appointment for your 6 week checkup if it has not already been made. 8. Report any of the following occurrences to the doctor promptly: a. Heavy, excessive bleeding b. Chills, fever c. Burning or frequency of urination d. Pain or redness and breasts if nursing e. Increasing pain or swelling in episiotomy (stitches). In addition to the above instructions, the following additional should be followed: 1. No heavy lifting or straining (exercising) until after 6 week checkup. 2. Keep abdominal incision clean and dry: You may wear a dressing if more comfortable. 3. Make office appointment for 10 days after going home or as instructed by her doctor. Discharge Disposition: HOME SELF-CARE
[2022-12-30 11:12] VITALS: BP 131/84; PULSE 76; RESP 19; TEMP 98.3
== END 2022-12-30 09:45 | disposition home or self-care (01) | DRG 786 ==
LOC: FBPOP 08:13 → 4FBP 08:39
PROVIDERS: ADMIT Obstetrics & Gynecology; ATTEND Obstetrics & Gynecology
PROC: 10D00Z1 Extraction of Products of Conception, Low, Open Approach (ICD-10-PCS; principal; 2022-12-28 08:55)
DX: O42.912 Preterm premature rupture of membranes, unspecified as to length of time between rupture and onset of labor, second trimester (principal); O45.92 Premature separation of placenta, unspecified, second trimester; O36.4XX0 Maternal care for intrauterine death, not applicable or unspecified; Z3A.27 27 weeks gestation of pregnancy; Z37.1 Single stillbirth; O32.1XX0 Maternal care for breech presentation, not applicable or unspecified; F17.200 Nicotine dependence, unspecified, uncomplicated; K44.9 Diaphragmatic hernia without obstruction or gangrene; O99.334 Smoking (tobacco) complicating childbirth; O99.62 Diseases of the digestive system complicating childbirth; O35.CXX0 Maternal care for other (suspected) fetal abnormality and damage, fetal pulmonary anomalies, not applicable or unspecified
CPT/HCPCS: 84112; 85025; 86850; 86900; 86901; 99213

== ENCOUNTER 2023-12-10 22:59 | Emergency (ER) | payer BC ==
--- NOTE | 2023-12-10 23:26 | ED ---
Abdominal Pain HPI - General Source: patient, RN notes reviewed Mode of arrival: ambulatory Limitations: no limitations <Roxanne Menard - Last Filed: 12/10/23 23:25> <Osmar Thakur - Last Filed: 12/11/23 04:18> - General Stated Complaint: 12-15 wks , Placenta abruption symptoms Time Seen by Provider: 12/10/23 23:25 - History of Present Illness Initial Comments: Quick note: 33-year-old female presented to the ER with a chief complaint of vaginal bleeding and cramping. Patient reports she is and her last menstrual cycle was in September. History significant of abruptio placenta. (Roxanne Menard) 33-year-old female presented to the ED with complaints of vaginal spotting and back pain onset today. Patient reports that she may be as her last menstrual period was sometime at the end of September however she is not completely sure when and reports she took a test yesterday which was positive. She is G4, . Denies abdominal pain. Other than vaginal spotting denies vaginal discharge. Denies urinary symptoms. Denies fever or chills. No chest pain shortness of breath. No other complaints at this time. (Osmar Thakur) - Related Data Previous Rx's Medication Instructions Recorded Ibuprofen [Motrin] 600 mg PO Q6H #30 tab 12/29/22 oxyCODONE HCL [OxyIR] 5 mg PO Q4HR PRN #18 tab 12/29/22 Cephalexin [Keflex] 500 mg PO Q6HR 5 Days #20 cap 12/11/23 Allergies Allergy/AdvReac Type Severity Reaction Status Date / Time No Known Allergies Allergy Verified 12/28/22 09:24 Review of Systems ROS Other: All systems not noted in ROS Statement are negative. <Roxanne Menard - Last Filed: 12/10/23 23:25> ROS Other: All systems not noted in ROS Statement are negative. <Osmar Thakur - Last Filed: 12/11/23 04:18> ROS Statement: Those systems with pertinent positive or pertinent negative responses have been documented in the HPI. Past Medical History Past Medical History: No Reported History Additional Past Medical History / Comment(s): Heart mumur History of Any Multi-Drug Resistant Organisms: None Reported Past Surgical History: No Surgical Hx Reported Additional Past Surgical History / Comment(s): D&C Past Anesthesia/Blood Transfusion Reactions: No Reported Reaction Past Psychological History: No Psychological Hx Reported Smoking Status: Current some day smoker Past Alcohol Use History: Occasional Past Drug Use History: None Reported - Past Family History Mother Family Medical History: No Reported History <Roxanne Menard - Last Filed: 12/10/23 23:25> General Exam <Roxanne Menard - Last Filed: 12/10/23 23:25> General appearance: alert, in no apparent distress Eye exam: Present: normal appearance Neck exam: Present: normal inspection Respiratory exam: Present: normal lung sounds bilaterally Cardiovascular Exam: Present: regular rate GI/Abdominal exam: Present: soft, normal bowel sounds. Absent: distended, tenderness, guarding, rebound, rigid External exam: Present: other (Deferred) Speculum exam: Present: other (Deferred) By manual exam: Present: other (Deferred) Extremities exam: Present: normal inspection Back exam: Present: normal inspection Neurological exam: Present: alert, oriented X3 Skin exam: Present: warm, dry <Osmar Thakur - Last Filed: 12/11/23 04:18> - General Exam Comments Initial Comments: Visual Physical Exam Vital signs reviewed General: Well-appearing, nontoxic, no acute distress. Head: Normocephalic, atraumatic Eyes: PERRLA, EOMI ENT: Airway patent Chest: Nonlabored breathing Skin: No visual rash, normal skin tone Neuro: Alert and oriented 3 Musculoskeletal: No gross abnormalities (Roxanne Menard) Course Vital Signs 12/10/23 12/11/23 23:34 02:51 Temperature 98.2 F Pulse Rate 107 H 109 H Respiratory 20 18 Rate Blood Pressure 151/98 100/70 O2 Sat by Pulse 99 99 Oximetry Medical Decision Making <Roxanne Menard - Last Filed: 12/10/23 23:25> - Lab Data Result diagrams: 12/10/23 23:51 12/10/23 23:51 <Osmar Thakur - Last Filed: 12/11/23 04:18> - Medical Decision Making I performed the quick note portion of this chart. Electronically signed by Roxanne Menard PA-C (Roxanne Menard) Was pt. sent in by a medical professional or institution (, JENNIFER, HOME HEALTH ADMINISTRATOR, urgent care, hospital, or skilled nursing...) When possible be specific @ -No Did you speak to anyone other than the patient for history (EMS, parent, family, police, friend...)? What history was obtained from this source @ -No Did you review nursing and triage notes (agree or disagree)? Why? @ -I reviewed and agree with nursing and triage notes Were old charts reviewed (outside hosp., previous admission, EMS record, old EKG, old radiological studies, urgent care reports/EKG's, skilled nursing records)? Report findings @ -No old charts were reviewed Differential Diagnosis (chest pain, altered mental status, abdominal pain women, abdominal pain men, vaginal bleeding, weakness, fever, dyspnea, syncope, hea dache, dizziness, GI bleed, back pain, seizure, CVA, palpatations, mental health, musculoskeletal)? @ -Differential Vaginal Bleeding: Spontaneous , threatened , molar , ectopic , bloody show, incompetent cervix, abruptioplacenta, placenta previa, uterine rupture, dysfunctional uterine bleeding, hemorrhage, uterine fibroids, this is not meant to be an all-inclusive list. EKG interpreted by me (3pts min.). @ -None X-rays interpreted by me (1pt min.). @ -None done CT interpreted by me (1pt min.). @ -None done U/S interpreted by me (1pt. min.). @ -Ultrasound interpreted by me showing single live IUP at 15 weeks 1 day. What testing was considered but not performed or refused? (CT, X-rays, U/S, l abs)? Why? @ -None What meds were considered but not given or refused? Why? @ -None Did you discuss the management of the patient with other professionals (professionals i.e. , JENNIFER, HOME HEALTH ADMINISTRATOR, lab, RT, psych nurse, social and human services assistant, educational diagnostician, teacher, community service officer, rehabilitation case coordinator)? Give summary @ -No Was smoking cessation discussed for >3mins.? @ -No Was critical care preformed (if so, how long)? @ -No Were there social determinants of health that impacted care today? How? (Homelessness, low income, unemployed, alcoholism, drug addiction, transportation, low edu. Level, literacy, decrease access to med. care, retirement, rehab)? @ -No Was there de-escalation of care discussed even if they declined (Discuss DNR or withdrawal of care, Hospice)? DNR status @ -No What co-morbidities impacted this encounter? (DM, HTN, Smoking, COPD, CAD, Cancer, CVA, ARF, Chemo, Hep., AIDS, mental health diagnosis, sleep apnea, morbid obesity)? @ -None Was patient admitted / discharged? Hospital course, mention meds given and route, prescriptions, significant lab abnormalities, going to OR and other pertinent info. @ -Discharge 33-year-old female presenting to the ED with 1 day of vaginal spotting and back pain. Laboratory studies reviewed and are largely unremarkable other than finding on urinalysis for asymptomatic bacteriuria. Patient blood type a positive. Ultrasound was performed which revealed single live IUP at 15 weeks 1 day. Discharged home with prescription for Keflex for treatment of asymptomatic bacteriuria. Advise close follow-up with her [employer]. Discussed return precautions with patient who verbalized agreement. Undiagnosed new problem with uncertain prognosis? @ -No Drug Therapy requiring intensive monitoring for toxicity (Heparin, Nitro, Insulin, Cardizem)? @ -No Were any procedures done? @ -No Diagnosis/symptom? @ -Threatened miscarriage Acute, or Chronic, or Acute on Chronic? @ -Acute Uncomplicated (without systemic symptoms) or Complicated (systemic symptoms)? @ -Uncomplicated Side effects of treatment? @ -No Exacerbation, Progression, or Severe Exacerbation? @ -No Poses a threat to life or bodily function? How? (Chest pain, USA, PA, pneumonia, PE, COPD, DKA, ARF, appy, cholecystitis, CVA, Diverticulitis, Homicidal, Suicidal, threat to staff... and all critical care pts) @ -No (Osmar Thakur) - Lab Data Lab Results 12/10/23 12/10/23 12/10/23 Range/Units 23:46 23:51 23:51 WBC 5.7 (3.8-10.6) k/uL RBC 4.25 (3.80-5.40) m/uL Hgb 12.9 (11.4-16.0) gm/dL Hct 39.5 (34.0-46.0) % MCV 93.0 (80.0-100.0) fL MCH 30.5 (25.0-35.0) pg MCHC 32.8 (31.0-37.0) g/dL RDW 14.7 (11.5-15.5) % Plt Count 279 (150-450) k/uL MPV 7.5 Neutrophils % 67 % Lymphocytes % 21 % Monocytes % 5 % Eosinophils % 3 % Basophils % 1 % Neutrophils # 3.8 (1.3-7.7) k/uL Lymphocytes # 1.2 (1.0-4.8) k/uL Monocytes # 0.3 (0-1.0) k/uL Eosinophils # 0.2 (0-0.7) k/uL Basophils # 0.1 (0-0.2) k/uL Sodium 138 (137-145) mmol/L Potassium 4.0 (3.5-5.1) mmol/L Chloride 108 H (98-107) mmol/L Carbon Dioxide 20 L (22-30) mmol/L Anion Gap 10 mmol/L BUN 4 L (7-17) mg/dL Creatinine 0.41 L (0.52-1.04) mg/dL Est GFR (CKD-EPI)AfAm >90 (>60 ml/min/1.73 sqM) Est GFR (CKD-EPI)NonAf >90 (>60 ml/min/1.73 sqM) Glucose 98 (74-99) mg/dL Calcium 9.3 (8.4-10.2) mg/dL Total Bilirubin 0.5 (0.2-1.3) mg/dL AST 40 H (14-36) U/L ALT 32 (4-34) U/L Alkaline Phosphatase 72 (38-126) U/L Total Protein 7.8 (6.3-8.2) g/dL Albumin 4.7 (3.5-5.0) g/dL HCG, Quant 59416.8 mIU/mL Urine Color Urine Appearance (Clear) Urine pH (5.0-8.0) Ur Specific Nelson (1.001-1.035) Urine Protein (Negative) Urine Glucose (UA) (Negative) Urine Ketones (Negative) Urine Blood (Negative) Urine Nitrite (Negative) Urine Bilirubin (Negative) Urine Urobilinogen (<2.0) mg/dL Ur Leukocyte Esterase (Negative) Urine RBC (0-5) /hpf Urine WBC (0-5) /hpf Ur Squamous Epith Cells (0-4) /hpf Amorphous Sediment (None) /hpf Urine Bacteria (None) /hpf Urine Mucus (None) /hpf Blood Type A Positive Blood Type Recheck A Pos Bld Type Recheck Status No 12/11/23 Range/Units 01:41 WBC (3.8-10.6) k/uL RBC (3.80-5.40) m/uL Hgb (11.4-16.0) gm/dL Hct (34.0-46.0) % MCV (80.0-100.0) fL MCH (25.0-35.0) pg MCHC (31.0-37.0) g/dL RDW (11.5-15.5) % Plt Count (150-450) k/uL MPV Neutrophils % % Lymphocytes % % Monocytes % % Eosinophils % % Basophils % % Neutrophils # (1.3-7.7) k/uL Lymphocytes # (1.0-4.8) k/uL Monocytes # (0-1.0) k/uL Eosinophils # (0-0.7) k/uL Basophils # (0-0.2) k/uL Sodium (137-145) mmol/L Potassium (3.5-5.1) mmol/L Chloride (98-107) mmol/L Carbon Dioxide (22-30) mmol/L Anion Gap mmol/L BUN (7-17) mg/dL Creatinine (0.52-1.04) mg/dL Est GFR (CKD-EPI)AfAm (>60 ml/min/1.73 sqM) Est GFR (CKD-EPI)NonAf (>60 ml/min/1.73 sqM) Glucose (74-99) mg/dL Calcium (8.4-10.2) mg/dL Total Bilirubin (0.2-1.3) mg/dL AST (14-36) U/L ALT (4-34) U/L Alkaline Phosphatase (38-126) U/L Total Protein (6.3-8.2) g/dL Albumin (3.5-5.0) g/dL HCG, Quant mIU/mL Urine Color Colorless Urine Appearance Cloudy H (Clear) Urine pH 5.5 (5.0-8.0) Ur Specific Nelson 1.005 (1.001-1.035) Urine Protein Negative (Negative) Urine Glucose (UA) Negative (Negative) Urine Ketones Negative (Negative) Urine Blood Negative (Negative) Urine Nitrite Negative (Negative) Urine Bilirubin Negative (Negative) Urine Urobilinogen <2.0 (<2.0) mg/dL Ur Leukocyte Esterase Large H (Negative) Urine RBC 16 H (0-5) /hpf Urine WBC 13 H (0-5) /hpf Ur Squamous Epith Cells 8 H (0-4) /hpf Amorphous Sediment Occasional H (None) /hpf Urine Bacteria Rare H (None) /hpf Urine Mucus Rare H (None) /hpf Blood Type Blood Type Recheck Bld Type Recheck Status Disposition <Roxanne Menard - Last Filed: 12/10/23 23:25> Is patient prescribed a controlled substance at d/c from ED?: No Time of Disposition: 02:30 <Osmar Thakur - Last Filed: 12/11/23 04:18> Clinical Impression: Threatened Disposition: HOME SELF-CARE Condition: Good Additional Instructions: Please return to the Emergency Department if symptoms worsen or any other concerns. Please follow-up with your [employer] [employer]. Prescriptions: Cephalexin [Keflex] 500 mg PO Q6HR 5 Days #20 cap Referrals: Cameron Acosta Jr, [Primary Care Provider] - 1-2 days
[2023-12-10 23:39] VITALS: TEMP 98.2
[2023-12-11 00:30] LABS: Basophils # (A) 0.1 k/uL (0-0.2); Basophils % (A) 1 %; Eosinophils # (A) 0.2 k/uL (0-0.7); Eosinophils % (A) 3 %; HCT 39.5 % (34.0-46.0); HGB 12.9 gm/dL (11.4-16.0); Lymphocytes # (A) 1.2 k/uL (1.0-4.8); Lymphocytes % (A) 21 %; MCH 30.5 pg (25.0-35.0); MCHC 32.8 g/dL (31.0-37.0); Mean Platelet Volume 7.5; Monocytes # (A) 0.3 k/uL (0-1.0); Monocytes % (A) 5 %; Neutrophils # (A) 3.8 k/uL (1.3-7.7); Neutrophils % (A) 67 %; Platelet Count 279 k/uL (150-450); RBC 4.25 m/uL (3.80-5.40); RDW 14.7 % (11.5-15.5); WBC 5.7 k/uL (3.8-10.6)
[2023-12-11 00:49] LABS: ALT 32 U/L (4-34); AST 40 U/L (14-36); African American GFR (CKD) >90 (>60 ml/min/1.73 sqM); Albumin 4.7 g/dL (3.5-5.0); Alkaline Phosphatase 72 U/L (38-126); Anion Gap 10 mmol/L; Blood Urea Nitrogen 4 mg/dL (7-17); Calcium 9.3 mg/dL (8.4-10.2); Carbon Dioxide 20 mmol/L (22-30); Chloride 108 mmol/L (98-107); Glucose 98 mg/dL (74-99); Non-African American GFR(CKD) >90 (>60 ml/min/1.73 sqM); Sodium 138 mmol/L (137-145); Total Bilirubin 0.5 mg/dL (0.2-1.3); Total Protein 7.8 g/dL (6.3-8.2)
[2023-12-11 01:43] LABS: HCG,Quantitative Serum 46336.8 mIU/mL
[2023-12-11 01:58] LABS: Amorphous Sediment,Urine Occasional /hpf; Appearance,Urine Cloudy (Clear); Bacteria,Urine Rare /hpf; Bilirubin,Urine Negative (Negative); Blood,Urine Negative (Negative); Color,Urine Colorless; Glucose,Urine (UA) Negative (Negative); Ketones,Urine Negative (Negative); Leukocyte Esterase,Urine Large (Negative); Mucus,Urine Rare /hpf; Nitrite,Urine Negative (Negative); PH, Urine 5.5 (5.0-8.0); Protein,Urine Negative (Negative); RBC,Urine 16 /hpf (0-5); Specific Gravity,Urine 1.005 (1.001-1.035); Squamous Epithelial Cell,Urine 8 /hpf (0-4); Urobilinogen,Urine <2.0 mg/dL (<2.0); WBC,Urine 13 /hpf (0-5)
--- NOTE | 2023-12-11 02:36 | US ---
EXAM: US Second or Third Trimester , Transabdominal CLINICAL HISTORY: Vag bleeding/abd cramping TECHNIQUE: Real-time transabdominal obstetrical ultrasound of the maternal pelvis and a second or third trimester with image documentation. COMPARISON: No relevant prior studies available. FINDINGS: Fetus: Single live intrauterine . Heart rate: 170 bpm. Presentation: Vertex. Placenta: Anterior. No abruption or previa. Amniotic fluid: 8.49 cm. MVP 2.8 cm. Anatomy: Intracranial/face anatomy not seen. Spinal anatomy not seen. Abdominal anatomy not seen. Extremities not seen. Four-chamber heart not seen. Umbilical cord not seen. BIOMETRICS Gestational age: 15 weeks 1 day VELMA: [birth year]01[birth year]24. EFW: 125 g. BPD: 14 weeks 5 days HC: 14 weeks 5 days AC: 15 weeks 5 days FL: 15 weeks 3 days MATERNAL: Cervix: Not visualized. IMPRESSION: Single live intrauterine at 15 weeks 1 day. Relatively low amniotic fluid index, recommend follow-up.
[2023-12-11 02:58] VITALS: BP 100/70; PULSE 109; RESP 18
[2023-12-11] MEDS: CEPHALEXIN 500MG STARTER PACK 4 CAP BTL PO STA (03:18)
== END 2023-12-11 03:19 | disposition home or self-care (01) ==
LOC: EC 22:59
DX: O20.0 Threatened abortion (principal); O99.332 Smoking (tobacco) complicating pregnancy, second trimester; F17.200 Nicotine dependence, unspecified, uncomplicated; Z3A.15 15 weeks gestation of pregnancy
CPT/HCPCS: 36415; 76805; 80053; 81001; 84702; 85025; 86900; 86901; 99284